=== PATIENT | male | born 1985 | race Caucasian/White ===

== ENCOUNTER 2022-01-12 05:13 | Emergency (ER) | payer BC, SELFPAY ==
[2022-01-12 05:39] VITALS: BP 123/70; PULSE 62; RESP 16; TEMP 36; O2SAT 96; BMI 23.7
--- NOTE | 2022-01-12 05:52 | ED_ITS ---
HPI - Eye Problem General Time Seen by Provider: 05:52 Date Seen: 01/12/22 Chief complaint: Eye Problems Stated complaint: foreign object in eye Time Seen by Provider: 01/12/22 05:28 Source: patient and family Mode of arrival: ambulatory Limitations: no limitations History of Present Illness chief complaint: foreign body Onset (ago): hour(s) Onset description: sudden and awoke with symptoms Duration: constant Location: right eye Eye Symptoms: foreign body sensation Place: home Mechanism: none Severity: moderate If Pain, Quality: aching Associated symptoms: none Treatments Prior to Arrival: irrigated eye Related Data Patient tetanus UTD: Yes Home Medications Medication Instructions Recorded Confirmed No Known Home Medications 01/12/22 01/12/22 Allergies Allergy/AdvReac Type Severity Reaction Status Date / Time No Known Drug Allergies Allergy Verified 01/12/22 05:46 Review of Systems Status of ROS: Reports: 6 or more systems reviewed and unremarkable except as noted in History and below [facility] Medical History Concussion 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 Exam Const: Vital Signs, click to edit/add: Vital Signs - 24 hr 01/12/22 05:39 Temperature 96.8 F L Pulse Rate [Pulse Oximeter] 62 Respiratory Rate 16 Blood Pressure [Le ft Upper Arm] 123/70 Pulse Oximetry 96 Documenting provider has reviewed patient's vital signs: yes HENMT: Common normals: normocephalic, head/scalp atraumatic, hearing grossly normal bilaterally, external ears normal, external nose normal, nasal mucous membranes and turbinates normal, moist oral mucous membranes, oropharynx normal, dentition normal and gingiva normal Head and scalp: normocephalic and atraumatic Face and sinus: normal facial exam, sinuses nontender and face symmetric Nose: external nose normal and nasal mucous membranes and turbinates normal External ear: external ears normal Eye: Common normals: PERRL, EOMs intact bilaterally, conjunctivae normal, no scleral icterus, no papilledema, normal visual kimble by confrontation and fundi normal bilaterally General eye: normal appearance of both eyes (Right eye shows little bit of scleral injection,), normal light reflex and other Visual acuity: acuity normal Alignment: alignment normal Periorbital: periorbital findings normal Eyelid: eyelids normal Conjunctiva: conjunctiva(e) normal Pupil: PERRL EOM: EOM abnormal Direct Ophthalmoscopy: normal light reflex, no papilledema and fundi normal bilaterally Slit lamp exam: slit lamp exam performed with fluorescein, lids/lashes/lacrimal system Lids/lashes/ lacrimal system details: normal appearing, conjunctiva/sclera Conjunctiva/sclera details: normal appearing, cornea Cornea details: normal appearing, anterior chamber, iris Iris details: pupils round, lens Lens details: clear and anterior vitreous Anterior vitreous details: clear Course Vital Signs Vital signs: Initial Vital Signs Temperature 96.8 F L 01/12/22 05:39 Temperature Source Temporal Artery Scan 01/12/22 05:39 Pulse Rate 62 01/12/22 05:39 Respiratory Rate 16 01/12/22 05:39 Blood Pressure 123/70 01/12/22 05:39 Blood Pressure Mean 87 01/12/22 05:39 Blood Pressure Position Sitting 01/12/22 05:39 Pulse Oximetry 96 01/12/22 05:39 Oxygen Delivery Method 01/12/22 05:39 Vital Signs Temperature 96.8 F L 01/12/22 05:39 Pulse Rate 62 01/12/22 05:39 Respiratory Rate 16 01/12/22 05:39 Blood Pressure 123/70 01/12/22 05:39 Pulse Oximetry 96 01/12/22 05:39 Temperature 96.8 F L 01/12/22 05:39 Pulse Rate 62 01/12/22 05:39 Respiratory Rate 16 01/12/22 05:39 Blood Pressure 123/70 01/12/22 05:39 Pulse Oximetry 96 01/12/22 05:39 MDM - Eye Problem MDM Narrative Medical decision making narrative: Patient has a little bit of injection in his right eye, could not see any evidence of foreign body, there is no pooling of fluorescein, upper lid is everted and normal and wiped lower lid is checked also. Normal he did feel a lot better after the [place], believe this is a foreign body sensation there may have been a foreign body but I think they got out by flushing the eye home. Will start him on some tobramycin drops, and I also would suggest ibuprofen 800 mg p.o. t.i.d. Differential Diagnosis Differential diagnosis: Likely corneal abrasion, conjunctivitis, acute iritis, hyphema, periorbital cellulitis, subconjunctival hemorrhage, glaucoma, corneal ulcer and ruptured globe Medical Records Attestation: I reviewed the patient's medical records. Discharge Plan Discharge Clinical Impression: Sensation of foreign body in eye Patient Disposition: Home w/ Parent or Adult Condition: Stable Instructions: Eye Pain (ED) Additional Instructions: Home rest ibuprofen 800 mg, as the eyedrops as directed, sunglasses tomorrow, if foreign body sensation persists on Thursday and then please go to the [facility]. Activity Level: No Restrictions Prescriptions: No Action No Known Home Medications 0RF Stand Alone Forms: [employer] Info Instructions
== END 2022-01-12 06:30 | disposition home or self-care (01) ==
PROVIDERS: Emergency Provider Family Medicine
DX: T15.91XA Foreign body on external eye, part unspecified, right eye, initial encounter (principal)
CPT/HCPCS: 99283; A9270